=== PATIENT | male | born 1960 | race Caucasian/White ===

== ENCOUNTER 2025-05-20 07:21 | Outpatient (CLI) | payer MEDICARE, BC, SELFPAY ==
--- NOTE | ~2025-05-20 | PE_ITS ---
EXAMINATION: PET_PETPSMAST_PT DATE: 05/20/2025 11:24 INDICATION: Prostate cancer TECHNIQUE: 5.269 mCi of Illucix Ga-68([id number]) was administered i.v. Low dose computed tomography (CT) images were acquired from the base of the brain to the base of the brain to the proximal thighs for attenuation correction and anatomic localization. Positron emission tomography (PET) images were acquired in the same distribution beginning 78 minutes after injection. Images including fused PET/CT images were reconstructed in axial, coronal, and sagittal planes. Automated exposure control technique was employed. The dose-length product was 1287.83mGy-cm. COMPARISON: None FINDINGS: Head/neck: Typical pattern of symmetric physiologic increased activity in the lacrimal, parotid and submandibular glands as well as along the mucosa of the nasal and oral cavities, pharynx and hypopharynx. No pathologically enlarged cervical lymphadenopathy or suspicious foci of increased uptake in the visualized head or neck. Chest: Mild emphysema at the bilateral lung bases. Small calcified nodule left upper lobe consistent with old granulomatous disease. No suspicious pulmonary nodules, pneumonia, pulmonary edema or pleural effusion. Mild cardiomegaly. Atherosclerotic coronary artery calcium location. No pericardial effusion. Th oracic aorta is normal in caliber. No pathologically enlarged or PSMA avid thoracic lymphadenopathy. Abdomen/pelvis/proximal thighs: Physiologic renal accumulation and excretion of activity in the kidneys, bladder and along portions of ureters. Prostatomegaly measuring 5.5 x 4.3 cm. There is an approximately 1.5 cm region of increased PSMA activity with maximal SUV of 11.6 at the left posterior aspect of the prostate consistent with primary prostate cancer. Normal degree and slightly heterogenous pattern of increased uptake throughout the liver and spleen without radiologic correlate or dominant PSMA avid lesion. The gallbladder, pancreas and bilateral adrenal glands are normal. Moderate uptake scattered throughout the bowels with typical duodenal and proximal jejunal predominance and without radiologic correlate, also likely physiologic. Normal appendix. Moderate-sized bilateral fat-containing inguinal hernias. No other abnormal foci of increased uptake or pathologically enlarged lymphadenopathy in the abdomen, pelvis or proximal thighs. Musculoskeletal: C5-C6 anterior spinal fusion. There are bridging osteophytes at multiple levels the cervical and thoracic spine consistent with diffuse idiopathic skeletal hyperostosis (DISH). No suspicious lytic, blastic or abnormally PSMA avid bone lesions. IMPRESSION: 1. PSMA avid lesion in the left posterior aspect of the enlarged prostate consistent with primary prostate cancer. No lesion suspicious for metastatic disease in the visualized head/neck, chest, abdomen or pelvis. Reviewed, dictated and finalized at location A. ER SPRAYER IMPRESSION: 1. PSMA avid lesion in the left posterior aspect of the enlarged prostate consi stent with primary prostate cancer. No lesion suspicious for metastatic disease in the visualized head/neck, chest, abdomen or pelvis.
--- OUTSIDE RECORDS SUMMARY | 2025-05-20 07:23 | XMS_ITS | Encounter Summary ---
Author Organization [facility] Address [facility] [place] [address] Care Team Providers Care Toll Service Observer Name Role Phone Soahil Ortiz MD Unavailable Constantino Davis DO Unavailable Nadja YORK MD, Adair Andrade Primary Care Provider Encounter Details Date Type Department Care Team (Latest Contact Info) Description 05/10/2025 Scan HEALTH INFO SRVCS Scanned, Doc Med Group Social History Tobacco Use Types Packs/Day Years Used Date Smoking Tobacco: Never Smokeless Tobacco: Never Alcohol Use Standard Drinks/Week Comments Yes 0 (1 standard drink = 0.6 oz pur e alcohol) PHQ-2 Answer Date Recorded Patient Health Questionnaire-2 Score 0 03/21/2025 Sex and Gender Information Value Date Recorded Sex Assigned at Not on file Legal Sex Male 8:13 AM CDT Gender Identity Not on file Sexual Orientation Not on file Occupation Industry Job Start Date Job End Date Not on file Not on file Not on file Not on file documented as of this encounter Plan of Treatment Upcoming Encounters Date Type Department Care Team (Late st Contact Info) Description 07/03/2025 11:10 AM 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 [place] [address] [place] [address] documented as of this encounter Visit Diagnoses Not on filedocumented in this encounter Additional Health Concerns Assessment Noted Time PHQ-9 Depression Total Score: 0 03/21/20 25 9:51 AM CDT documented as of this encounter Care Teams Toll Service Observer Relationship Specialty Start Date End Date Adair Saez II, MD [address] [place] [address] PCP - General FAMILY PRACTICE 03/21/25 Sohail Ortiz MD [facility]. [address] [address] [place] [address] [place] [employer] Refrigerated Truck Driver CARDIOVASCULAR DISEASE 07/18/16 Constantino Davis DO [address] [place] [address] Major Assembler 06/30/23 documented as of this encounter
--- OUTSIDE RECORDS SUMMARY | 2025-05-20 07:23 | XMS_ITS | Encounter Summary ---
Author Organization [facility] Address [facility] [place] [address] Care Team Providers Care Pants Cutter Name Role Phone Stew Sanchez MD Primary Care Provider [phone] Sohail Ortiz MD Unavailable Constantino Davis DO Unavailable [phone] None, Provider Primary Care Provider Unavaila john Saez II, MD, Adair Andrade Primary Care Provider Encounter Details Date Type Department Care Team (Late st Contact Info) Description 11/10/2016 Abstract [facility] [address] [place] [address] Kyra Spicer MA Social History Tobacco Use Types Packs/Day Years Used Date Smoking Tobacco: Never Smokeless Tobacco: Never Alcohol Use Standard Drinks/Week Comments Yes 0 (1 standard drink = 0.6 oz pur e alcohol) Sex and Gender Information Value Date Recorded [...] st Contact Info) Description 07/03/2025 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 [address] [address] [place] [address] documented as of this encounter Procedures Procedure Name Priority Date/Time Associated Diagnosis Comments COMPREHENSIVE METABOLIC PANEL Routine 10/24/2018 LIPID PANEL Routine 10/24/2018 LIPID PANEL Routine 04/21/2018 CK (CPK) Routine 04/21/2018 CBC (OUTSIDE LAB) Routine 11/03/2016 PROSTATE SPECIFIC ANTIGEN,TOTAL Routine 11/03/2016 COMPREHENSIVE METABOLIC PANEL Routine 11/03/2016 LIPID PANEL Routine 11/03/2016 THYROID STIM HORMONE TSH Routine 11/03/2016 ALT/SGPT Routine 04/21/2016 documented in this encounter Results * LIPID PANEL (10/24/2018) CHOLESTEROL 127 HDL 62 TRIGLYCERIDES 105 NON HDL CHOLESTEROL 65 LDL (CALCULATED) 44 10/24/2018 us Doc [facility] LABORATORY Final Result * COMPREHENSIVE METABOLIC PANEL (10/24/2018) SODIUM S/P/B 144 POTASSIUM S/P/B 4.5 CO2 24 CHLORIDE S/P/B 105 GLUCOSE 93 mg/dL CALCIUM S/P/B 8.7 BUN 18 CREATININE S/P/B 1.0 0.7 - 1.3 EGFR AFR. AMER. 98 EGFR NON-AFR. AMER. 81 <=90 ALKALINE PHOSPHATASE S/P/B 92 ALT 32 AST 25 BILIRUBIN TOTAL S/P/B 0.7 ALBUMIN S/P/B 4.5 3.5 - 5.0 TOTAL PROTEIN S/P/B 6.4 10/24/2018 us Doc [facility] Abstract LABORATORY Final Result * LIPID PANEL (04/21/2018) CHOLESTEROL 119 HDL 57 TRIGLYCERIDES 83 NON HDL CHOLESTEROL 62 LDL (CALCULATED) 45 04/21/2018 us Doc [facility] LABORATORY Final Result * CK (CPK) (04/21/2018) CPK 146 04/21/2018 us Doc [facility] LABORATORY Final Result * PROSTATE SPECIFIC ANTIGEN,TOTAL (11/03/2016) PSA 0.377 11/03/2016 us Doc [facility] LABORATORY Final Result * THYROID STIM HORMONE, TSH (11/03/2016) TSH 1.284 11/03/2016 us Doc [facility] LABORATORY Final Result * LIPID PANEL (11/03/2016) CHOLESTEROL 137 HDL 37 TRIGLYCERIDES 131 LDL (CALCULATED) 74 11/03/2016 us Doc [facility] LABORATORY Final Result * COMPREHENSIVE METABOLIC PANEL (11/03/2016) SODIUM S/P/B 141 POTASSIUM S/P/B 4.0 CO2 27 CHLORIDE S/P/B 104 GLUCOSE 119 CALCIUM S/P/B 9.4 BUN 7 CREATININE S/P/B 0.86 0.7 - 1.3 EGFR AFR. AMER. >60 EGFR NON-AFR. AMER. >60 ALKALINE PHOSPHATASE S/P/B 90 ALT 29 AST 29 BILIRUBIN TOTAL S/P/B 1.0 ALBUMIN S/P/B 4.3 3.5 - 5.0 TOTAL PROTEIN S/P/B 6.2 URIC ACID 4.7 11/03/2016 us Doc [facility] LABORATORY Edited Resul t - Final * CBC (OUTSIDE LAB) (11/03/2016) WBC 5.5 HGB 14.0 HCT 38.6 PLT 223 11/03/2016 us Doc [facility] Abstract LAB-OUTSIDE/ABSTRACTED Final Result * ALT/SGPT (04/21/2016) ALT 38 04/21/2016 us Doc [facility] LABORATORY Final Result documented in this encounter Visit Diagnoses Not on filedocumented in this encounter Care Teams Pants Cutter Relationship Specialty Start Date End Date Stew Sanchez MD [address] [facility] [address] [place] [phone] PCP - General FAMILY PRACTICE 07/18/16 12/19/23 None, MD Ciera PCP - General UNKNOWN PHYSICIAN SPECIALTY 12/20/23 01/28/25 Adair Saez II, MD [address] [place] [address] PCP - General FAMILY PRACTICE 03/21/25 Sohail Ortiz MD [id number] [place] [address] [place] Final Expense Agent CARDIOVASCULAR DISEASE 07/18/16 Constantino Davis DO [address] [place] [address] Stitch Wheeler 06/30/23 documented as of this encounter
--- OUTSIDE RECORDS SUMMARY | 2025-05-20 07:23 | XMS_ITS | Clinical Summary ---
Author Organization [facility] Address [address] [place] [address] Care Team Providers Care Driving Instructor Name Role Phone Sohail Suarez MD Unavailable Constantino Davis DO Unavailable [phone] Nadja YORK MD, Adair Andrade Primary Care Provider Allergies Active Allergy Reactions Criticality Noted Date Comments Brimonidine Tartrate-Timolol Swelling Medium 025 Dorzolamide Hcl-Timolol Mal Swelling Medium 01/23/20 25 Timolol Swelling Medium 01/22/2025 Medications Cholecalciferol 50 MCG (1999 UT) Tab Take 4,000 Units by mouth daily. 02/08/2017 Active Multiple Vitamins-Minera ls (PRESERVISION AREDS) Tab Take 1 tablet by mouth daily. 02/08/2017 Active Tilden-3 Fatty Acids (OMEGA-3 FISH OIL) 1200 MG Cap Take 1 capsule by mouth daily. 02/08/2017 Active Multiple Vitamins-Minera ls (CENTRUM SILVER) Tab Take 1 tablet by mouth daily. 09/27/2017 Active aspirin EC (ASPIRIN LOW DOSE) 81 MG tablet Take 1 tablet (81 mg total) by mouth daily. 100 tablet 1 08/13/2020 Active VYZULTA 0.024 % Solution Place 1 drop into both eyes nightly. 09/21/2024 Active nitroglycerin (NITROSTAT) 0.[address] 1 tablet (0.4 mg total) under the tongue every 5 (five) minutes as needed for Chest Pain (If taking 3rd dose, contact 911.). 25 tablet 1 01/22/2025 Active sildenafil (VIAGRA) 100 MG tabletIndicatio ns:ED (erectile dysfunction) of organic origin TAKE 1/2 TABLET BY MOUTH ONCE DAILY NEEDED 30 tablet 3 03/21/2025 Active metoprolol tartrate (LOPRESSOR) 25 MG tablet TAKE 1/2 TABLET(12.5 MG) BY MOUTH TWICE DAILY 90 tablet 1 04/11/2025 Active atorvastatin (LIPITOR) 20 MG tablet TAKE 1 TABLET(20 MG) BY MOUTH EVERY NIGHT AT BEDTIME 90 tablet 1 04/11/2025 Active Active Problems Problem Noted Date Diagnosed Date Cataract of left eye, unspecified cataract type 08/16/2023 Hemorrhoids, unspecified hemorrhoid type 023 Impaired fasting glucose 04/01/2021 Skin lesion 10/24/2018 Osteoarthritis of knee 07/08/2014 Dyslipidemia CAD (coronary artery disease) ED (erectile dysfunction) of organic origin Resolved Problems Problem Noted Date Diagnosed Date Resolved Date NSTEMI (non-ST elevated myoc ardial infarction) 10/01/2016 02/08/2017 Hyperlipidemia 07/08/2014 01/06/2021 Routine general medical exam ination at a health care facility 05/25/2013 02/14/2023 Encounters Date Type Department Care Team Description 05/10/2025 Scan MG HEALTH INFO SRVCS Scanned, Doc Med Group 03/29/2025 Scan MG HEALTH INFO SRVCS Scanned, Doc Med Group 03/21/2025 9:50 AM CDT Office Visit [facility] Family Medicine - [place] [phone] Adair Saez II, MD New Patient (Patient presents to establish care and complete health PE) 03/21/2025 Travel 02/21/2025 Scan MG HEALTH INFO SRVCS Scanned, Doc Med Group Lab (SCAN) from Last 3 Months Immunizations Immunization Administration Dates Next Due Dt (1-<7 Y.O.) 07/06/2004 Fluzone 6 Months+ Quad (0.5 mL Prefilled Syringe) 07/24/2019 Influenza (Generic) 04/05/2017, 6,04/17/2014,2012 Influenza Adult (Generic) 04/21/2018 Shingrix 06/30/2021,04/01/2021 Tdap (Generic) 07/09/2014 Family History Medical History Relation Comments afib Mother Relation Status Comments Mother Social History Tobacco Use Types Packs/Day Years Used Date Smoking Tobacco: Never Smokeless Tobacco: Never Tobacco Cessation:Counseling Given: No Alcohol Use Standard Drinks/Week Comments Yes 0 [...] file Not on file Not on file Last Filed Vital Signs Vital Sign Reading Time Taken Comments Blood Pressure 142/78 03/21/2025 10:08 AM CDT Pulse 60 03/21/2025 9:43 AM CDT Temperature 36.6 C (97.8 F) 03/21/2025 9:43 AM CDT Respiratory Rate - - Oxygen Saturation 97% 03/21/2025 9:43 AM CDT Inhaled Oxygen Concentration - - Weight 103.4 kg (228 lb) 03/21/2025 9:43 AM CDT Height 185.4 cm (6' 1) 03/21/2025 9:43 AM CDT Body Mass Index 30.08 03/21/2025 9:43 AM CDT Plan of Treatment Upcoming Encounters Date Type Department Care Team (Late st Contact Info) Description 07/03/2025 11:10 AM WOOL HANKER Office Visit [facility] Family Medicine - [address] [place] [phone] Adair Saez II, MD [address] [place], [place] [phone] 01/28/2026 9:30 AM CDT Office Visit [facility] [address] [place], [place] [phone] Ibis Ramirez, ANP-BC [facility]. [place] [address] [place] [phone] Health Maintenance Due Date Last Done Comments Colorectal Cancer Screening Colonoscopy (10 Years) 1958 Hepatitis C 1976 Pneumococcal Vaccine: 50+ Years (1 of 2 - PCV) 1977 RSV Immunization or 60+ Years (1 - Risk 60-74 years 1-dose series) 2018 Annual Medicare Wellness Visit 2023 ASCVD LDL 10/15/2023 10/14/2022, 03/18, 01/23/2021, Additional history exists DTaP, Tdap and Td Vaccines (2 - Td or Tdap) 07/09/2024 07/09/2014, 07/06/2004 COVID-19 Vaccine (3 - season) 2025 10/21/2020, 09/30/2020 Influenza Adult (#1) 2025 07/24/2019, 04/21/2018, 04/05/2017, Additional history exists Zoster Vaccines Completed 06/30/2021, 04/01/2021 PHQ-2 (Physician [place]) Completed 03/21/2025 Hepatitis A Vaccines Aged Out No long er eligible based on patient's age to complete this topic Meningococcal B Vaccine Aged Out No l onger eligible based on patient's age to complete this topic Meningococcal Vaccine Aged Out No jennifer martina eligible based on patient's age to complete this topic RSV Immunizations Under 20 Months Aged Out No longer eligible based on patient's age to complete this topic Procedures Procedure Name Priority Date/Time Associated Diagnosis Comments OUTSIDE LAB (SCAN ORDER) 02/21/2025 LIPID PANEL Routine 10/14/2022 10:14 AM CDT Coronary artery disease involving upper [place] coronary artery of upper [place] heart, unspecified whether angina present Dyslipidemia Elevated blood sugar COLONOSCOPY Routine WOOL HANKER from Last 3 Months or Most Recently Relevant to Health Maintenance Results * OUTSIDE LAB (SCAN ORDER) (02/21/2025) 02/21/2025 us Doc Med Group Scanned SCANNING Final Resu lt * (ABNORMAL) LIPID PANEL (10/14/2022 10:14 AM CDT) CHOLESTEROL 127 0 - 199 MG/DL [facility] TRIGLYCERIDES 164(H) 0.00 - 150.00 MG/DL [facility] Comment: NCEP REFERENCE VALUES FOR TRIGLYCERIDES: NORMAL: <150 MG/DL BORDERLINE HIGH: 150 - 199 MG/DL HIGH: 200 - 499 MG/DL VERY HIGH: >/= 500 MG/DL HDL 49 >40 MG/DL [facility] LDL (CALCULATED) 45 0 - 99 MG/DL [facility] Comment: CUTOFF VALUES RECOMMENDED BY THE NATIONAL CHOLESTEROL EDUCATION PROGRAM: DESIRABLE: CHOLESTEROL <200 MG/DL LDL <100 MG/DL BORDERLINE: CHOLESTEROL 200-239 MG/DL LDL 101-159 MG/DL HIGHER RISK: CHOLESTEROL >240 MG/DL LDL >160 MG/DL, HDL <40 MG/DL NON HDL CHOLESTEROL 78 NO REFERENCE RANGE MG/DL [facility] Comment: A REASONABLE GOAL FOR NON-HDL CHOLESTEROL IS ONE THAT IS 30 MG/DL HIGHER THAN THE LDL CHOLESTEROL GOAL. CHOL/HDL RATIO 2.6 0.0 - 5.0 . [facility] Comment: 12 HOUR FASTING REQUIRED. OUTSIDE ORDERS/ORDERS IN EPIC DR SUAREZ FAX TO [phone] 10/14/2022 10:1 4 AM CDT 10/15/2022 4:42 AM CDT Setw Sanchez MD LABORATORY Final Resul t Performing Organization Address City/State/[facility] Co de Phone Number [facility] [address] [place] [address], * Colonoscopy ( WOOL HANKER) Narrative [facility] TO EPIC CONVERSION - WOOL HANKER Documented hx of procedure Procedure Note , Generic ConversionMD - 05/21/2018 Documented hx of procedure Robert Duarte Md, MD GI PROCEDURE ORDERABLES Final Result [facility] TO EPIC CONVERSION from Last 3 Months or Most Recently Relevant to Health Maintenance Insurance MEDICARE [facility] MEDICARE Care Teams Driving Instructor Relationship Specialty Start Date End Date Adair Saez II, MD [address] [place] [phone] PCP - General FAMILY PRACTICE 03/21/25 Sohail Suarez MD [facility] [address] [place], [place] [phone] [place] [employer] Reporter CARDIOVASCULAR DISEASE 07/18/16 Constantino Davis DO [address] [place] [address] Percussion Tuner 06/30/23
== END 2025-05-20 07:22 | disposition home or self-care (01) ==
PROVIDERS: Visit Provider Urology
DX: C61 Malignant neoplasm of prostate (principal)
CPT/HCPCS: 78815; A9596